=== PATIENT | female | born 1990 | race Caucasian/White ===

== ENCOUNTER 2016-07-28 15:36 | Emergency (ER) | payer BC ==
[2016-07-28] MEDS ORDERED: SODIUM CHLORIDE 0.9% 1,000 ML IV ONE (16:04)
[2016-07-28] MEDS ORDERED: KETOROLAC 30 MG/ML 1 ML VIAL IVP STA (16:07)
--- NOTE | 2016-07-28 16:09 | ED ---
General Adult HPI - General Chief complaint: Weakness Stated complaint: fatigue Time Seen by Provider: 07/28/16 15:54 Source: patient, RN notes reviewed, old records reviewed Mode of arrival: ambulatory Limitations: no limitations - History of Present Illness Initial comments: Is a pleasant 26-year-old female with chief complaint fatigue for the past week. Patient reports that she was diagnosed with strep on Sunday. She was placed on amoxicillin. She states that that medicine caused her to vomit that she recently was switched to Biaxin. She states that she also felt lightheaded and very fatigued. She reports that she reports that if local physician's office and they prescribed her Antivert. She reports that despite her extremely tired. She denies any dizziness at this time she denies any lightheadedness. She reports that she's had a mild cough. Denies any recent fever. She states she's up-to-date on vaccinations and did have the influenza vaccine. Patient denies any abdominal pain, nausea or vomiting. Denies any dysuria hematuria or changes in bowel movement. She did have an appetite today. She reports that over the past 2 days she hasn't. Patient per she does has diffuse body aches. She states that she is in relatively good health. No chronic medical conditions. - Related Data Home Medications Medication Instructions Recorded Confirmed Cholecalciferol [Vitamin D3] 400 unit PO DAILY 07/28/16 07/28/16 Citalopram Hydrobromide [CeleXA] 10 mg PO DAILY 07/28/16 07/28/16 Clarithromycin [Biaxin] 500 mg PO Q12HR 07/28/16 07/28/16 Loratadine [Claritin] 10 mg PO DAILY 07/28/16 07/28/16 Meclizine [Antivert] 25 mg PO DAILY PRN 07/28/16 07/28/16 Multivitamins, Thera [Multivitamin 1 tab PO DAILY 07/28/16 07/28/16 (formulary)] Norethindrone-E.estradiol-Iron 1 tab PO DAILY 07/28/16 07/28/16 [ 24 Tablet] Allergies Allergy/AdvReac Type Severity Reaction Status Date / Time Sulfa (Sulfonamide Allergy Unknown Verified 07/28/16 16:29 Antibiotics) amoxicillin AdvReac Nausea & Verified 05/05/17 16:29 Vomiting Review of Systems ROS Statement: Those systems with pertinent positive or pertinent negative responses have been documented in the HPI. ROS Other: All systems not noted in ROS Statement are negative. Past Medical History Past Medical History: Asthma Additional Past Medical History / Comment(s): mono epstien bar virus seasonal allergies History of Any Multi-Drug Resistant Organisms: None Reported Additional Past Surgical History / Comment(s): ovarian cyst surg Past Psychological History: Anxiety Smoking Status: Never smoker Past Alcohol Use History: None Reported Past Drug Use History: None Reported General Exam - General Exam Comments Initial Comments: His is a pleasant 26-year-old female. No acute distress. Limitations: no limitations General appearance: alert, in no apparent distress Head exam: Present: atraumatic, normocephalic, normal inspection Eye exam: Present: normal appearance, PERRL, EOMI. Absent: scleral icterus, conjunctival injection, periorbital swelling ENT exam: Present: normal exam, mucous membranes moist, other (Enlarged bilateral tonsils. No evidence of exudates.) Neck exam: Present: normal inspection, lymphadenopathy (Tender anterior cervical right-sided lymphadenopathy.). Absent: tenderness, meningismus Respiratory exam: Present: normal lung sounds bilaterally. Absent: respiratory distress, wheezes, rales, rhonchi, stridor Cardiovascular Exam: Present: regular rate, normal rhythm, normal heart sounds. Absent: systolic murmur, diastolic murmur, rubs, gallop, clicks GI/Abdominal exam: Present: soft, normal bowel sounds. Absent: distended, tenderness, guarding, rebound, rigid Extremities exam: Present: normal inspection, full ROM, normal capillary refill. Absent: tenderness, pedal edema, joint swelling, calf tenderness Back exam: Present: normal inspection Neurological exam: Present: alert, oriented X3, CN II-XII intact Psychiatric exam: Present: normal affect, normal mood Skin exam: Present: warm, dry, intact, normal color. Absent: rash Course Vital Signs 07/28/16 15:44 Temperature 98.4 F Pulse Rate 85 Respiratory 18 Rate Blood Pressure 150/90 O2 Sat by Pulse 99 Oximetry Medical Decision Making - Medical Decision Making This is a 26-year-old female chief complaint of fatigue, sore throat and upper respiratory symptoms for the past week. Patient reports that she has been started on Biaxin for strep throat. She states she's been taking this. She does feel little bit better. She states she just feels extremely tired. She has had a history of mono in the past. All labs are reviewed and are negative. Negative heterophile. Patient was given a liter IV fluids. Discussed with her the importance of rest. Discussed return parameters. Chest x-rays venous also negative for any acute process. Patient agrees to treatment plan will comply. She'll be continuing on her outpatient antibiotic. - Lab Data Result diagrams: 07/28/16 16:20 07/28/16 16:20 Lab Results 07/28/16 07/28/16 07/28/16 Range/Units 16:20 16:20 16:20 WBC 3.9 (3.8-10.6) k/uL RBC 4.64 (3.80-5.40) m/uL Hgb 13.9 (11.4-16.0) gm/dL Hct 40.6 (34.0-46.0) % MCV 87.6 (80.0-100.0) fL MCH 30.0 (25.0-35.0) pg MCHC 34.2 (31.0-37.0) g/dL RDW 12.3 (11.5-15.5) % Plt Count 222 (150-450) k/uL Neutrophils % 48 % Lymphocytes % 39 % Monocytes % 8 % Eosinophils % 2 % Basophils % 1 % Neutrophils # 1.9 (1.3-7.7) k/uL Lymphocytes # 1.5 (1.0-4.8) k/uL Monocytes # 0.3 (0-1.0) k/uL Eosinophils # 0.1 (0-0.7) k/uL Basophils # 0.0 (0-0.2) k/uL Sodium 140 (137-145) mmol/L Potassium 4.3 (3.5-5.1) mmol/L Chloride 105 (98-107) mmol/L Carbon Dioxide 26 (22-30) mmol/L Anion Gap 9 mmol/L BUN 12 (7-17) mg/dL Creatinine 0.67 (0.52-1.04) mg/dL Est GFR (MDRD) Af Amer >60 (>60 ml/min/1.73 sqM) Est GFR (MDRD) Non-Af >60 (>60 ml/min/1.73 sqM) Glucose 97 (74-99) mg/dL Calcium 9.2 (8.4-10.2) mg/dL Total Bilirubin 0.4 (0.2-1.3) mg/dL AST 21 (14-36) U/L ALT 20 (9-52) U/L Alkaline Phosphatase 94 (38-126) U/L Total Protein 8.0 (6.3-8.2) g/dL Albumin 4.4 (3.5-5.0) g/dL Urine Color Urine Appearance (Clear) Urine pH (5.0-8.0) Ur Specific Rye (1.001-1.035) Urine Protein (Negative) Urine Glucose (UA) (Negative) Urine Ketones (Negative) Urine Blood (Negative) Urine Nitrite (Negative) Urine Bilirubin (Negative) Urine Urobilinogen (<2.0) mg/dL Ur Leukocyte Esterase (Negative) Heterophile Antibody (Negative) Influenza Type A RNA Not Detected (Not Detectd) Influenza Type B (PCR) Not Detected (Not Detectd) 07/28/16 07/28/16 Range/Units 16:20 16:20 WBC (3.8-10.6) k/uL RBC (3.80-5.40) m/uL Hgb (11.4-16.0) gm/dL Hct (34.0-46.0) % MCV (80.0-100.0) fL MCH (25.0-35.0) pg MCHC (31.0-37.0) g/dL RDW (11.5-15.5) % Plt Count (150-450) k/uL Neutrophils % % Lymphocytes % % Monocytes % % Eosinophils % % Basophils % % Neutrophils # (1.3-7.7) k/uL Lymphocytes # (1.0-4.8) k/uL Monocytes # (0-1.0) k/uL Eosinophils # (0-0.7) k/uL Basophils # (0-0.2) k/uL Sodium (137-145) mmol/L Potassium (3.5-5.1) mmol/L Chloride (98-107) mmol/L Carbon Dioxide (22-30) mmol/L Anion Gap mmol/L BUN (7-17) mg/dL Creatinine (0.52-1.04) mg/dL Est GFR (MDRD) Af Amer (>60 ml/min/1.73 sqM) Est GFR (MDRD) Non-Af (>60 ml/min/1.73 sqM) Glucose (74-99) mg/dL Calcium (8.4-10.2) mg/dL Total Bilirubin (0.2-1.3) mg/dL AST (14-36) U/L ALT (9-52) U/L Alkaline Phosphatase (38-126) U/L Total Protein (6.3-8.2) g/dL Albumin (3.5-5.0) g/dL Urine Color Colorless Urine Appearance Clear (Clear) Urine pH 6.5 (5.0-8.0) Ur Specific Rye 1.002 (1.001-1.035) Urine Protein Negative (Negative) Urine Glucose (UA) Negative (Negative) Urine Ketones Negative (Negative) Urine Blood Negative (Negative) Urine Nitrite Negative (Negative) Urine Bilirubin Negative (Negative) Urine Urobilinogen <2.0 (<2.0) mg/dL Ur Leukocyte Esterase Negative (Negative) Heterophile Antibody Negative (Negative) Influenza Type A RNA (Not Detectd) Influenza Type B (PCR) (Not Detectd) - Radiology Data Radiology results: report reviewed Chest x-ray was again is no evidence of any acute cardiopulmonary process. This is read by Dr. Marifer Garcia. Disposition Clinical Impression: Upper respiratory infection, Fatigue Disposition: HOME SELF-CARE Condition: Good Instructions: Upper Respiratory Infection (ED) Additional Instructions: Patient advised to follow up with primary care provider if symptoms continue to persist on Sunday. Patient is to rest and remain hydrated. Return to the emergency department if any alarming signs or symptoms occur. Referrals: Chaim Silva MD [Primary Care Provider] - 1-2 days Time of Disposition: 17:17
[2016-07-28] MEDS ORDERED: SODIUM CHLORIDE 0.9% 1,000 ML IV SCH (16:15)
[2016-07-28 16:33] LABS: Appearance,Urine Clear (Clear); Bilirubin,Urine Negative (Negative); Glucose,Urine (UA) Negative (Negative); Ketones,Urine Negative (Negative); Leukocyte Esterase,Urine Negative (Negative); Nitrite,Urine Negative (Negative); PH, Urine 6.5 (5.0-8.0); Protein,Urine Negative (Negative); Specific Gravity,Urine 1.002 (1.001-1.035); UA Billing (MACRO vs. MICRO) CHEM; Urobilinogen,Urine <2.0 mg/dL (<2.0)
[2016-07-28 16:35] LABS: Basophils % (A) 1 %; CH 30.2; CHCM 34.6; Eosinophils # (A) 0.1 k/uL (0-0.7); Eosinophils % (A) 2 %; HCT 40.6 % (34.0-46.0); HDW 2.63; HGB 13.9 gm/dL (11.4-16.0); Luc # (Auto) 0.12; Luc % (Auto) 3; Lymphocytes # (A) 1.5 k/uL (1.0-4.8); Lymphocytes % (A) 39 %; MCHC 34.2 g/dL (31.0-37.0); MCV 87.6 fL (80.0-100.0); Mean Platelet Volume 6.7; Monocytes # (A) 0.3 k/uL (0-1.0); Monocytes % (A) 8 %; Neutrophils # (A) 1.9 k/uL (1.3-7.7); Neutrophils % (A) 48 %; RBC 4.64 m/uL (3.80-5.40); RDW 12.3 % (11.5-15.5); WBC 3.9 k/uL (3.8-10.6); WBC (Perox) 3.67
[2016-07-28 16:43] LABS: ALT 20 U/L (9-52); AST 21 U/L (14-36); Alkaline Phosphatase 94 U/L (38-126); Anion Gap 9 mmol/L; Blood Urea Nitrogen 12 mg/dL (7-17); Calcium 9.2 mg/dL (8.4-10.2); Carbon Dioxide 26 mmol/L (22-30); Chloride 105 mmol/L (98-107); Glucose 97 mg/dL (74-99); Non-African American GFR(MDRD) >60 (>60 ml/min/1.73 sqM); Potassium 4.3 mmol/L (3.5-5.1); Sodium 140 mmol/L (137-145); Total Bilirubin 0.4 mg/dL (0.2-1.3)
--- NOTE | 2016-07-28 16:48 | XR ---
EXAMINATION TYPE: XR chest 2V DATE OF EXAM: 07/28/2016 4:37 PM COMPARISON: NONE HISTORY: Fatigue TECHNIQUE: Frontal and lateral views of the chest are obtained. FINDINGS: There is no focal air space opacity, pleural effusion, or pneumothorax seen. The cardiac silhouette size is within normal limits. The osseous structures are intact. IMPRESSION: No acute cardiopulmonary process.
[2016-07-28 17:47] VITALS: BP 127/84; PULSE 64; RESP 20; TEMP 99
== END 2016-07-28 17:48 | disposition home or self-care (01) ==
LOC: EC 15:36
DX: J06.9 Acute upper respiratory infection, unspecified (principal); R53.83 Other fatigue; R42 Dizziness and giddiness; Z88.0 Allergy status to penicillin; Z88.2 Allergy status to sulfonamides; Z79.899 Other long term (current) drug therapy
CPT/HCPCS: 99285; 96374; 96361; 36415; 80053; 85025; 86308; 81003; 87502; 71020; J1885

== ENCOUNTER → 2016-12-19 | Outpatient (CLI) | payer BC ==
--- NOTE | 2016-12-19 17:50 | US ---
EXAMINATION TYPE: US transvaginal DATE OF EXAM: 12/19/2016 COMPARISON: 04/03/2014 CLINICAL HISTORY: R10.2 Pelvic pain. TECHNIQUE: Transvaginal (TV) only per ordering physician Date of LMP: 12/09/2016 EXAM MEASUREMENTS: Uterus: 6.8 x 2.6 x 3.9 cm Endometrial Stripe: 0.4 cm Right Ovary: 3.2 x 1.7 x 2.0 cm Left Ovary: 2.7 x 1.7 x 2.4 cm 1. Uterus: anteverted 2. Endometrium: wnl 3. Right Ovary: wnl 4. Left Ovary: wnl 5. Bilateral Adnexa: wnl 6. Posterior cul-de-sac: wnl IMPRESSION: Normal transvaginal pelvic sonogram.
== END | disposition home or self-care (01) ==
LOC: RADUSWWP 16:36
PROVIDERS: ATTEND Obstetrics & Gynecology
DX: R10.2 Pelvic and perineal pain (principal)
CPT/HCPCS: 76830

== ENCOUNTER 2017-06-03 19:53 | Outpatient (CLI) | payer BC ==
[2017-06-03 20:43] LABS: Basophils % (A) 0 %; Eosinophils # (A) 0.2 k/uL (0-0.7); Eosinophils % (A) 3 %; HGB 10.8 gm/dL (11.4-16.0); Lymphocytes # (A) 1.7 k/uL (1.0-4.8); Lymphocytes % (A) 18 %; MCH 29.4 pg (25.0-35.0); MCHC 34.7 g/dL (31.0-37.0); MCV 84.6 fL (80.0-100.0); Mean Platelet Volume 7.8; Monocytes # (A) 0.5 k/uL (0-1.0); Monocytes % (A) 5 %; Neutrophils # (A) 6.8 k/uL (1.3-7.7); Neutrophils % (A) 72 %; Platelet Count 244 k/uL (150-450); RBC 3.66 m/uL (3.80-5.40); RDW 13.2 % (11.5-15.5); WBC 9.4 k/uL (3.8-10.6)
[2017-06-03 20:46] LABS: Amorphous Sediment,Urine Rare /hpf; Appearance,Urine Cloudy (Clear); Bacteria,Urine Rare /hpf; Bilirubin,Urine Negative (Negative); Blood,Urine Negative (Negative); Color,Urine Yellow; Glucose,Urine (UA) 3+ (Negative); Ketones,Urine Trace (Negative); Leukocyte Esterase,Urine Negative (Negative); Mucus,Urine Occasional /hpf; Nitrite,Urine Negative (Negative); Protein,Urine Negative (Negative); Specific Gravity,Urine 1.018 (1.001-1.035); Squamous Epithelial Cell,Urine 3 /hpf (0-4); Urobilinogen,Urine <2.0 mg/dL (<2.0); WBC,Urine 1 /hpf (0-5)
[2017-06-03 21:04] LABS: Uric Acid 3.9 mg/dL (3.7-7.4)
[2017-06-03 21:05] VITALS: BP 169/106; PULSE 118; RESP 16; TEMP 97.4
--- NOTE | 2017-08-08 09:11 | P.MSEPDOC ---
Presenting Problems - Arrival Data Date of Arrival on Unit: 06/03/17 Time of Arrival on Unit: 19:53 Mode of Transport: Wheelchair Medical History - Information : 1 Para: 0 Term: 0 : 0 Abortions: Spontaneous or Elective: 0 Number of Living Children: 0 - Gestational Age Gestational Age by JACQUES (wks/days): 25 Weeks and 1 Days Vital Signs - Temperature Temperature: 97.4 F Temperature Source: Temporal Artery Scan - Pulse Right Brachial Pulse Rate: 118 Pulse Assessment Method: Automatic Cuff - Respirations Respiratory Rate: 16 Oxygen Delivery Method: Room Air O2 Sat by Pulse Oximetry: 97 - Blood Pressure Right Arm Blood Pressure: 169/106 Blood Pressure Mean: 127 Blood Pressure Source: Automatic Cuff Medical Screen Scoring (Post) - Cervical Exam Dilation: Exam Deferred Effacement: Exam Deferred - Uterine Contractions Frequency: N/A Duration: N/A Intensity: N/A - Maternal Vital Signs Maternal Temperature: N/A Maternal Blood Pressure: Systolic >139 = 2 Signs of Preeclampsia: N/A Maternal Respirations: N/A - Pain Assessment Pain Scale Used: Numeric (1 - 10) Pain Intensity: 0 - Maternal Trauma Maternal Trauma: N/A - Assessment Heart Rate - NICHD Category: Category I (Normal) = 0 - Total Score Total Score (Post): 2 - Post Treatment Level of Risk Post Treatment Level of Risk: Low (0-5) Physician Notification (Post) - Physician Notified Physician Notified Date: 06/03/17 Physician Notified Time: 21:17 Spoke With: siva Lagunas Order Received: Yes - Notification Comment Comment: d/c pt home after pih labs, ua. Follow up with Desiree 06/05 Disposition - Disposition OB Disposition: Discharge to home, Written follow up instructions reviewed Discharge Date: 06/03/17 Discharge Time: 21:25 I agree with the RN Medical Screening Exam: Yes Physician's MSE Comment: Labs were wnl, blood pressure came down to normal. pt had no s/s of pre- eclampsia. she is to follow up with her ob in 2 days. Risk & Benefit of care provided described in d/c instruction: Yes Diagnosis: GESTATNL HTN W/O SIGNIFICANT PROTEINURIA, SECOND TRIMESTER
== END 2017-06-03 21:25 | disposition home or self-care (01) ==
LOC: FBPOP 19:53
PROVIDERS: ATTEND Obstetrics & Gynecology
DX: O13.2 Gestational [pregnancy-induced] hypertension without significant proteinuria, second trimester (principal); Z3A.25 25 weeks gestation of pregnancy
CPT/HCPCS: 81001; 82570; 83615; 84156; 84450; 84460; 84550; 85025; 99215

== ENCOUNTER 2017-09-10 12:28 | Inpatient (IN) | payer BC ==
[2017-09-10] MEDS ORDERED: DINOPROSTONE 10 MG INSERT.ER VAGINAL ONE (12:44)
[2017-09-10 13:48] LABS: Basophils % (A) 0 %; Eosinophils # (A) 0.1 k/uL (0-0.7); Eosinophils % (A) 1 %; HCT 31.4 % (34.0-46.0); HGB 10.4 gm/dL (11.4-16.0); Lymphocytes % (A) 19 %; MCH 26.8 pg (25.0-35.0); MCHC 33.1 g/dL (31.0-37.0); MCV 80.9 fL (80.0-100.0); Mean Platelet Volume 7.2; Monocytes # (A) 0.4 k/uL (0-1.0); Monocytes % (A) 4 %; Neutrophils # (A) 7.6 k/uL (1.3-7.7); Neutrophils % (A) 73 %; Platelet Count 257 k/uL (150-450); RBC 3.88 m/uL (3.80-5.40); RDW 14.7 % (11.5-15.5); WBC 10.5 k/uL (3.8-10.6)
[2017-09-10 14:06] VITALS: BMI 38.4
[2017-09-10 14:10] LABS: Uric Acid 4.7 mg/dL (3.7-7.4)
[2017-09-10 14:30] LABS: INR 0.9 (<1.2); Prothrombin Time 9.3 sec (9.0-12.0)
[2017-09-10 14:33] LABS: Partial Thromboplastin Time 20.3 sec (22.0-30.0)
--- NOTE | 2017-09-10 18:34 | P.HPOB ---
History of Present Illness H&P Date: 09/10/17 Chief Complaint: Gestational hypertension. This patient is a pleasant 27-year-old 1 para 0 female estimated date of confinement 09/15/2017 estimated gestational age 39-2/7 weeks to labor and delivery from my office for evaluation of hypertension. Patient's blood pressures throughout the been fine however today in the office she was 140-152/94-98. Repeat blood pressures here in labor and delivery are similar. Preeclampsia evaluation was negative. Patient does report a mild headache over the weekend but did not take anything for it. Patient also failed a 3 hour gtt. and has been managed by endocrinology for gestational diabetes with good control. Review of Systems Genitourinary: Reports Menstruation: Reports amenorrhea Past Medical History Past Medical History: Asthma Additional Past Medical History / Comment(s): mono epstien bar virus seasonal allergies, gestational hypertension. History of Any Multi-Drug Resistant Organisms: None Reported Additional Past Surgical History / Comment(s): Patient had a laparotomy in [address] Kulkarni her for a 11 cm right ovarian dermoid that was treated by a right ovarian cystectomy. Past Anesthesia/Blood Transfusion Reactions: No Reported Reaction Past Psychological History: Anxiety Smoking Status: Never smoker Past Alcohol Use History: None Reported Past Drug Use History: None Reported - Past Family History Father History Unknown: Yes Family Medical History: Hypertension Medications and Allergies Home Medications Medication Instructions Recorded Confirmed Type Loratadine [Claritin] 10 mg PO DAILY 07/28/16 09/10/17 History Multivitamins, Thera [Multivitamin 1 tab PO DAILY 07/28/16 09/10/17 History (formulary)] Allergies Allergy/AdvReac Type Severity Reaction Status Date / Time Sulfa (Sulfonamide Allergy Unknown Verified 09/10/17 12:40 Antibiotics) amoxicillin AdvReac Nausea & Verified 09/10/17 12:40 Vomiting Exam - Vital Signs Vital signs: Vital Signs Temp Pulse Resp BP Pulse Ox 09/10/17 12:37 99.0 F 103 H 18 160/108 97 Intake and Output 09/10/17 09/10/17 09/10/17 06:59 14:59 22:59 Other: Weight 101.605 kg - OBG Physical Exam Abdomen: bowel sounds normal, no diffuse tenderness, no bruit present, no guarding noted, no hepatomegaly, no splenomegaly, no mass Vagina: normal moisture, no discharge Cervix: no lesion (Cervix is closed and thick.), no discharge Uterus: enlarged (Fundal height is 39 cm.) Results blood work shows she is B+, rubella equivocal, RPR is nonreactive, hepatitis B was negative, group B strep was negative, most recent ultrasound showed normal growth. Estimated weight is 7 pounds 3/4-8 pounds. Result Diagrams: 09/10/17 13:15 09/10/17 13:15 Abnormal Lab Results - Last 24 Hours (Table) 09/10/17 09/10/17 Range/Units 13:15 13:15 Hgb 10.4 L (11.4-16.0) gm/dL Hct 31.4 L (34.0-46.0) % APTT 20.3 L (22.0-30.0) sec Fibrinogen 592 H (200-500) mg/dL Assessment and Plan Assessment: This is a pleasant 27-year-old 1 para 0 female estimated gestational age 39-2/7 weeks gestation with gestational hypertension. She also has gestational diabetes with good control. Patient's preeclampsia labs are normal at this time. This point her blood pressures are elevated but not at a level that indicate treatment. Recommended proceed with two-stage induction of labor. Patient I discussed her diagnoses and the induction process. (1) Gestational diabetes Current Visit: Yes Status: Acute Code(s): O24.419 - GESTATIONAL DIABETES MELLITUS IN , UNSP CONTROL SNOMED Code(s): 02994308 (2) Gestational hypertension Current Visit: Yes Status: Acute Code(s): O13.9 - GESTATIONAL HTN W/O SIGNIFICANT PROTEINURIA, UNSP TRIMESTER SNOMED Code(s): 30203087
[2017-09-10 20:05] LABS: Glucose,Whole Blood 127 mg/dL (75-99)
[2017-09-11] MEDS ORDERED: METHYLERGONOVINE 0.2 MG/ML 1 ML AMP IM PRN (01:49)
[2017-09-11] MEDS ORDERED: LIDOCAINE 1% (PF) 10 MG/ML (30 ML SDV) SQ PRN (01:49)
[2017-09-11] MEDS ORDERED: OXYTOCIN 10 UNIT/ML 1 ML VIAL IM PRN (01:49)
[2017-09-11] MEDS ORDERED: CARBOPROST TROMETHAMINE 250 MCG/ML 1 ML AMP IM PRN (01:49)
[2017-09-11] MEDS ORDERED: TERBUTALINE 1 MG/ML VIAL SQ PRN (01:49)
[2017-09-11] MEDS ORDERED: LACTATED RINGERS 1,000 ML IV SCH (02:00)
[2017-09-11] MEDS ORDERED: OXYTOCIN 20 UNITS/1000 ML NS 1,000 ML IV SCH ×2 (02:00→08:42)
[2017-09-11] MEDS: BUTORPHANOL 1 MG/ML 1 ML VIAL IV PRN ×2 (02:19→04:38)
[2017-09-11] MEDS ORDERED: CITRIC ACID-SODIUM CITRATE 15 ML CUP PO ONE (06:08)
[2017-09-11] MEDS ORDERED: LACTATED RINGERS 1,000 ML IV ONE (06:08)
--- NOTE | 2017-09-11 06:13 | P.PN ---
Progress Note - Text Progress Note Date: 09/11/17 Patient dilated to 2 cm with Cervidil and thick. Artificial rupture membranes was done for clear fluid however patient has had no progress since approximately 1 this morning. Blood pressures are stable but occasionally elevated 160/90. I discussed continuing labor with this patient versus delivery by section this time she is requested to proceed with C- section at this time I feel is appropriate. We discussed the surgery and risks and benefits.
[2017-09-11] MEDS: ceFAZolin IN SWFI 2 GM/20 ML SYRINGE IVP ONE (07:14)
[2017-09-11] MEDS ORDERED: MORPHINE SULFATE (PF) 0.3 MG/0.3 ML SYR ONE (07:51)
[2017-09-11] MEDS ORDERED: NALBUPHINE 10 MG/ML VIAL (10ML MDV) ONE (07:51)
[2017-09-11] MEDS ORDERED: ePHEDrine SULFATE/0.9% NACL/PF 50 MG/5 ML SYRINGE IV ONE (07:51)
[2017-09-11] MEDS ORDERED: LACTATED RINGERS 1,000 ML BAG IV ONE (07:51)
[2017-09-11] MEDS ORDERED: KETOROLAC 30 MG/ML 1 ML VIAL ONE (07:51)
[2017-09-11] MEDS ORDERED: ONDANSETRON 4 MG/2 ML VIAL ONE (07:51)
[2017-09-11] MEDS ORDERED: OXYTOCIN 10 UNIT/ML 1 ML VIAL ONE (07:51)
[2017-09-11] MEDS ORDERED: CELLULOSE,OXIDIZED 1 EACH EACH MISCELLANE ONE (08:20)
[2017-09-11] MEDS ORDERED: diphenhydrAMINE 50 MG/ML 1 ML VIAL IVP PRN ×2 (08:41→08:42)
[2017-09-11] MEDS ORDERED: NALOXONE 0.4 MG/ML 1 ML VIAL IV PRN ×2 (08:41→08:42)
[2017-09-11] MEDS ORDERED: NALBUPHINE 10 MG/ML VIAL (10ML MDV) IV PRN (08:41)
[2017-09-11] MEDS ORDERED: MEASLES-MUMPS-RUBELLA VACC/PF 12,500 UNIT/0.5 ML VIAL SQ ONE (08:42)
[2017-09-11] MEDS ORDERED: ZOLPIDEM 5 MG TAB PO PRN (08:42)
[2017-09-11] MEDS ORDERED: diphenhydrAMINE 25 MG CAP PO PRN (08:42)
[2017-09-11] MEDS ORDERED: ONDANSETRON 4 MG/2 ML VIAL IVP PRN (08:42)
[2017-09-11] MEDS ORDERED: METOCLOPRAMIDE 5 MG/ML 2 ML VIAL IVP PRN (08:42)
[2017-09-11] MEDS ORDERED: SIMETHICONE 80 MG CHEWABLE PO PRN (08:42)
[2017-09-11] MEDS ORDERED: LABETALOL 100 MG TAB PO PRN (08:42)
--- NOTE | 2017-09-11 08:46 | P.OP ---
Date of Procedure: 09/11/17 Preoperative Diagnosis: #1: 39-2/7 week intrauterine . #2: Gestational hypertension. #3: Gestational diabetes. #4: Failed induction of labor. Postoperative Diagnosis: Same, omental adhesions Procedure(s) Performed: Primary low transverse section Anesthesia: spinal Surgeon: Garrick Ramírez Head Refrigerating Engineer #1: Alexis Moreno Estimated Blood Loss (ml): 800 Pathology: other (Placenta) Condition: stable Disposition: floor Indications for Procedure: Please see dictated H&P for intimate details of this patient's admission. Brief summary this pleasant 27-year-old 1 para 0 female 39-2/7 weeks gestation is admitted to labor and delivery for induction of labor secondary to gestational hypertension yesterday afternoon. Patient has Cervidil placed and then had artificial rupture membranes about 1:00 this morning and Pitocin augmentation of labor. Patient progressed only to 2 cm dilated and at that time we discussed options for delivery and plan was to proceed with section. Patient does understand the surgery and risks including risks of infection, bleeding, possible injury bowel, bladder, vessels, and/or other organs. She also understands risk of DVT and pulmonary embolism. All the patient's questions are answered and a written consent is obtained. Operative Findings: Viable female infant Apgars 9 and 9 at 0809 hrs. weight was 8 lbs. 3 oz. There were dense omental adhesions to the anterior abdominal wall from her previous laparotomy Description of Procedure: This patient had a Escalera catheter placed to straight drain. She subsequently taken to the operating room where she sat up and spinal anesthetic is administered without incident. With an adequate level of anesthesia she has abdominal prep and drape. Previous Pfannenstiel incision is incised with scalpel. A second scalpel is taken down to the fascia and the fascia scored with a knife. Fascial incision extended bilaterally using the Parry scissors. Fascia is dissected off the rectus muscles. Rectus muscles are and there is already omental adhesions are noted at this area. Careful blunt and sharp dissection is done at this time to open up the perineum. Small omental adhesions are taken down. I then place a bladder flap and the lower uterine segment. Metzenbaum was then used to develop the bladder peritoneum. Scalpels then taken and a low transverse uterine incision is then made. Using a hemostat into the uterine cavity gently and there is loss of small amount of clear fluid. This incision extended bluntly. 's head is then guided through the incision with fundal pressure with delivery of the infant's head. Mouth and nares are bulb suctioned. There is no evidence of nuchal cord. Have delivery anterior posterior shoulder and rest this 's body. Is a vigorous viable female infant Apgars are 9 and 9 delivery time is 0809 hrs. After delivery of the the umbilical cords doubly clamped and cut is handed off to the nurses in attendance. Placenta is then manually extracted intact. Uterus is then externalized and uterine incision closed in 0 Vicryl running locked fashion. There are some areas there was omental adhesions as well that are taken down. I do place a piece of Interceed on the lower part of the uterus to hopefully prevent future adhesions. With this done I inspect the pelvis all appears hemostatic. Perineum was then excised best as possible reapproximated using a 0 Vicryl running. There is a few lesions that are taken down some dense omental adhesions are left because her to dense. The rectus muscles are reapproximated Vicryl interrupted fashion. Fascia is then closed using 0 PDS. Fascial incision is intact and hemostatic. Subcutaneous tissues and reapproximated using a 3-0 Vicryl. Skin is and closed using alex. All counts are correct 3. There are no complications. Infant and mother taken birthing suite in satisfactory condition.
--- NOTE | 2017-09-11 09:37 | P.PN ---
Progress Note - Text Progress Note Date: 09/11/17 27-year-old female status post section postop day #1 with Duramorph spinal. Patient doing well, VAS 2 out of 10 in severity, no compressive pruritus, patient is ambulating and tolerating diet well.
[2017-09-11] MEDS: ceFAZolin IN SWFI 2 GM/20 ML SYRINGE IVP SCH ×2 (09:57→18:05)
[2017-09-11] MEDS: SENNOSIDES-DOCUSATE SODIUM 1 EACH TAB PO SCH ×2 (10:08→23:16)
[2017-09-11] MEDS: LACTATED RINGERS 1,000 ML IV SCH ×2 (12:00→17:08)
[2017-09-11] MEDS: KETOROLAC 30 MG/ML 1 ML VIAL IVP PRN (16:17)
[2017-09-12] MEDS: KETOROLAC 30 MG/ML 1 ML VIAL IVP PRN ×2 (01:14→08:38)
[2017-09-12] MEDS: LACTATED RINGERS 1,000 ML IV SCH (03:15)
--- NOTE | 2017-09-12 05:59 | P.PNOBGPC ---
Subjective - Subjective Patient reports: Reports appetite normal, Reports voiding normally, Reports pain well controlled, Reports ambulating normally : doing well Objective - Vital Signs Latest vital signs: Vital Signs Temp Pulse Resp BP Pulse Ox 09/12/17 05:00 16 09/12/17 04:00 98.7 F 95 16 119/77 09/12/17 03:00 16 98 09/12/17 01:00 16 98 09/12/17 00:00 98.1 F 105 H 16 130/78 09/11/17 23:00 16 09/11/17 21:00 16 99 09/11/17 20:00 99.3 F 95 16 125/79 09/11/17 19:00 18 09/11/17 17:00 16 96 09/11/17 15:50 98.5 F 89 16 136/88 97 09/11/17 15:00 16 09/11/17 13:41 97 09/11/17 13:00 18 09/11/17 12:00 98.8 F 91 18 124/71 96 09/11/17 11:41 16 09/11/17 10:42 96.7 F L 91 14 130/89 09/11/17 10:12 81 16 128/87 09/11/17 09:42 98 16 122/88 09/11/17 09:41 99 09/11/17 09:27 97 14 115/52 09/11/17 09:12 98 14 113/60 09/11/17 08:53 93 14 112/64 09/11/17 08:42 97.2 F L 96 16 106/59 09/11/17 08:41 14 99 Intake and Output 09/11/17 09/11/17 09/12/17 14:59 22:59 06:59 Output Total 1000 600 Balance -1000 -600 Output: Urine 1000 600 Other: Voiding Method Indwelling Catheter # Voids 1 1 Weight 101.605 kg - Exam Lungs: bilateral: normal Chest: Normal S1, Normal S2 Extremities: Present: normal Abdomen: Present: normal appearance, soft. Absent: distention, tenderness Incision: Present: normal, dry, intact Uterus: Present: normal, firm Assessment and Plan Assessment: Post operative day #1. Patient is resting without complaints. Vital signs are stable she's afebrile. Uterus is firm nontender and she is having normal lochia. Her incision is intact and dry. CBC is pending. Plan is to continue routine postoperative care, allow the patient to shower, check a CBC, and continue regular diet. (1) Gestational diabetes Current Visit: Yes Status: Acute Code(s): O24.419 - GESTATIONAL DIABETES MELLITUS IN , UNSP CONTROL SNOMED Code(s): 17674510 (2) Gestational hypertension Current Visit: Yes Status: Acute Code(s): O13.9 - GESTATIONAL HTN W/O SIGNIFICANT PROTEINURIA, UNSP TRIMESTER SNOMED Code(s): 65163346
[2017-09-12 07:00] LABS: Basophils % (A) 0 %; Eosinophils # (A) 0.1 k/uL (0-0.7); Eosinophils % (A) 1 %; HCT 27.6 % (34.0-46.0); Hypochromasia Slight; Lymphocytes # (A) 1.4 k/uL (1.0-4.8); Lymphocytes % (A) 14 %; MCH 26.5 pg (25.0-35.0); MCHC 32.8 g/dL (31.0-37.0); MCV 80.9 fL (80.0-100.0); Mean Platelet Volume 8.5; Monocytes # (A) 0.7 k/uL (0-1.0); Monocytes % (A) 6 %; Neutrophils % (A) 78 %; Platelet Count 213 k/uL (150-450); RBC 3.41 m/uL (3.80-5.40); RDW 14.8 % (11.5-15.5); WBC 10.2 k/uL (3.8-10.6)
[2017-09-12] MEDS: SENNOSIDES-DOCUSATE SODIUM 1 EACH TAB PO SCH ×2 (08:39→20:30)
--- NOTE | 2017-09-12 10:07 | P.PN ---
Progress Note - Text Anesthesia POD 1. Patient is status post section under spinal anesthesia with intra-thecal preservative free morphine 300 g. Moderate pruritus, good post-op analgesia, and no headache or other complication.
[2017-09-12] MEDS: ACETAMINOPHEN TAB 325 MG TAB PO PRN (12:03)
[2017-09-12] MEDS: IBUPROFEN 600 MG TAB PO PRN (18:16)
[2017-09-13] MEDS: ACETAMINOPHEN TAB 325 MG TAB PO PRN (00:03)
[2017-09-13] MEDS: IBUPROFEN 600 MG TAB PO PRN (06:28)
--- NOTE | 2017-09-13 06:37 | P.PNOBGPC ---
Subjective - Subjective Patient reports: Reports appetite normal, Reports voiding normally, Reports pain well controlled, Reports ambulating normally : doing well Objective - Vital Signs Latest vital signs: Vital Signs Temp Pulse Resp BP Pulse Ox 09/13/17 00:00 98.4 F 108 H 16 128/81 09/12/17 16:00 98.4 F 104 H 18 140/88 97 09/12/17 08:40 99.3 F 105 H 16 142/87 98 Intake and Output 09/12/17 09/12/17 09/13/17 14:59 22:59 06:59 Output Total 1 Balance -1 Output: Urine 1 Other: # Voids 1 2 - Exam Lungs: bilateral: normal Chest: Normal S1, Normal S2 Extremities: Present: normal Abdomen: Present: normal appearance, soft. Absent: distention, tenderness Incision: Present: normal, dry, intact Uterus: Present: normal, firm - Labs Labs: Abnormal Lab Results - Last 24 Hours (Table) 09/12/17 Range/Units 06:32 RBC 3.41 L (3.80-5.40) m/uL Hgb 9.0 L (11.4-16.0) gm/dL Hct 27.6 L (34.0-46.0) % Neutrophils # 8.0 H (1.3-7.7) k/uL Assessment and Plan Assessment: Post operative day #2. Patient is resting without complaints wishes to go home. Vital signs are stable she is afebrile. Blood pressures look good. Uterus is firm nontender and her incision is intact and dry. Patient is tolerating regular diet, urinating, ambulating without difficulty. My impression this is a normal post operative course. Plan is to continue routine postoperative care and discharge home later today. Patient will see me in 1 week for an incision and blood pressure check. (1) Gestational diabetes Current Visit: Yes Status: Acute Code(s): O24.419 - GESTATIONAL DIABETES MELLITUS IN , UNSP CONTROL SNOMED Code(s): 00629405 (2) Gestational hypertension Current Visit: Yes Status: Acute Code(s): O13.9 - GESTATIONAL HTN W/O SIGNIFICANT PROTEINURIA, UNSP TRIMESTER SNOMED Code(s): 46634025
--- NOTE | 2017-09-13 06:43 | P.DS ---
Providers Date of admission: 09/10/17 12:28 Expected date of discharge: 09/13/17 Attending physician: Garrick Ramírez Primary care physician: Ricardo Rucker - Discharge Diagnosis(es) (1) Gestational diabetes Current Visit: Yes Status: Acute (2) Gestational hypertension Current Visit: Yes Status: Acute Hospital Course: Please see dictated H&P for intimate details of this patient's admission. Brief summary this is a pleasant 27-year-old 1 para 0 female 39-2/7 weeks gestation admitted for my office with hypertension. Patient had a failed induction of labor and subsequent on to have a primary low transverse section for viable female infant. Please see dictated operative note. Postoperative patient very well and on postoperative 2 was felt be stable for discharge home follow up with me in 1 week. Patient did not require any blood pressure medications however repeat blood pressure check in 1 week. Procedures: Induction of labor and primary low transverse section. Patient Condition at Discharge: Good Plan - Discharge Summary New Discharge Prescriptions: No Action Multivitamins, Thera [Multivitamin (formulary)] 1 tab PO DAILY Loratadine [Claritin] 10 mg PO DAILY Discharge Medication List Loratadine [Claritin] 10 mg PO DAILY 07/28/16 [History] Multivitamins, Thera [Multivitamin (formulary)] 1 tab PO DAILY 07/28/16 [History ] Follow up Appointment(s)/Referral(s): Garrick Ramírez MD [STAFF PHYSICIAN] - 09/21/17 1:30 pm (Patient also has a check on October 23 at 10:30 AM.) Patient Instructions/Handouts: (DC) Activity/Diet/Wound Care/Special Instructions: No heavy lifting or strenuous activity for 6 weeks. No intercourse or anything per vagina for 6 weeks. Please call if any fever, chills, excessive vaginal bleeding, and/or abdominal pain. Discharge Disposition: HOME SELF-CARE
[2017-09-13] MEDS: SENNOSIDES-DOCUSATE SODIUM 1 EACH TAB PO SCH (07:33)
[2017-09-13 08:04] VITALS: BP 140/90; PULSE 110; RESP 17; TEMP 98.5
== END 2017-09-13 08:30 | disposition home or self-care (01) | DRG 766 ==
LOC: 4FBP 12:28
PROVIDERS: ADMIT Obstetrics & Gynecology; ATTEND Obstetrics & Gynecology
PROC: 3E0P7VZ Introduction of Hormone into Female Reproductive, Via Natural or Artificial Opening (ICD-10-PCS; 2017-09-11)
PROC: 10907ZC Drainage of Amniotic Fluid, Therapeutic from Products of Conception, Via Natural or Artificial Opening (ICD-10-PCS; 2017-09-11)
PROC: 10D00Z1 Extraction of Products of Conception, Low, Open Approach (ICD-10-PCS; principal; 2017-09-11 08:00)
DX: O13.4 Gestational [pregnancy-induced] hypertension without significant proteinuria, complicating childbirth (principal); O24.429 Gestational diabetes mellitus in childbirth, unspecified control; O61.9 Failed induction of labor, unspecified; O99.344 Other mental disorders complicating childbirth; F41.9 Anxiety disorder, unspecified; O99.52 Diseases of the respiratory system complicating childbirth; L29.9 Pruritus, unspecified; J45.909 Unspecified asthma, uncomplicated; O99.72 Diseases of the skin and subcutaneous tissue complicating childbirth; Z37.0 Single live birth; Z3A.39 39 weeks gestation of pregnancy; Z88.0 Allergy status to penicillin; Z88.2 Allergy status to sulfonamides; Z82.49 Family history of ischemic heart disease and other diseases of the circulatory system
CPT/HCPCS: 83615; 84450; 84460; 84520; 84550; 85025; 85384; 85610; 85730; 88307; 90707

== ENCOUNTER 2018-10-23 | Emergency (ER) | payer BC ==
--- NOTE | 2018-10-23 08:46 | ED ---
General Adult HPI - General Chief complaint: Allergic Reaction Stated complaint: allergic reaction Time Seen by Provider: 10/23/18 08:33 Source: patient, RN notes reviewed Mode of arrival: ambulatory Limitations: no limitations - History of Present Illness Initial comments: Patient is a pleasant 28-year-old female presenting to the emergency Department with complaints of scalp irritation. Patient states 2 days ago she did dye her hair. Patient is having itchy scalp. Patient has noticed some weeping and did have some yellow crusting this morning. Patient did recently wash her hair. Patient states there is mild irritation associated with this. No history of similar symptoms previously. Patient states there may be some swelling of the face near the scalp as well. No lip, tongue, or throat swelling. No dyspnea. - Related Data Home Medications Medication Instructions Recorded Confirmed Loratadine [Claritin] 10 mg PO DAILY 07/28/16 09/10/17 Multivitamins, Thera [Multivitamin 1 tab PO DAILY 07/28/16 09/10/17 (formulary)] Previous Rx's Medication Instructions Recorded Cephalexin [Keflex] 500 mg PO QID #28 cap 10/23/18 RX: predniSONE 2 tab PO DAILY #10 tab 10/23/18 Allergies Allergy/AdvReac Type Severity Reaction Status Date / Time Sulfa (Sulfonamide Allergy Unknown Verified 10/23/18 08:29 Antibiotics) amoxicillin AdvReac Nausea & Verified 10/23/18 08:29 Vomiting Review of Systems ROS Statement: Those systems with pertinent positive or pertinent negative responses have been documented in the HPI. ROS Other: All systems not noted in ROS Statement are negative. Constitutional: Denies: fever Eyes: Denies: eye pain ENT: Denies: ear pain Respiratory: Denies: cough Cardiovascular: Denies: chest pain Endocrine: Denies: fatigue Gastrointestinal: Denies: abdominal pain Genitourinary: Denies: dysuria Musculoskeletal: Denies: back pain Skin: Reports: as per HPI Neurological: Denies: headache Past Medical History Past Medical History: Asthma Additional Past Medical History / Comment(s): mono epstien bar virus seasonal allergies, gestational hypertension. History of Any Multi-Drug Resistant Organisms: None Reported Additional Past Surgical History / Comment(s): Patient had a laparotomy [place] [address] Shad narayan for a 11 cm right ovarian dermoid that was treated by a right ovarian cystectomy. Past Anesthesia/Blood Transfusion Reactions: No Reported Reaction Past Psychological History: Anxiety Smoking Status: Never smoker Past Alcohol Use History: None Reported Past Drug Use History: None Reported - Past Family History Father History Unknown: Yes Family Medical History: Hypertension General Exam Limitations: no limitations General appearance: alert, in no apparent distress Head exam: Present: atraumatic, normocephalic Eye exam: Present: normal appearance ENT exam: Present: normal oropharynx Neck exam: Present: normal inspection Respiratory exam: Present: normal lung sounds bilaterally Cardiovascular Exam: Present: regular rate, normal rhythm Neurological exam: Present: alert Psychiatric exam: Present: normal affect, normal mood Skin exam: Present: other (Scalp does have mild erythema more so on the superior portion. No discharge or drainage visualized.) Course Vital Signs 10/23/18 08:27 Temperature 97.5 F L Pulse Rate 107 H Respiratory 16 Rate Blood Pressure 142/99 O2 Sat by Pulse 97 Oximetry Medical Decision Making - Medical Decision Making Patient does have scalp irritation associated with hair dye use. Unclear at this point if there is a combined component of both infection and ALLERGIC reaction and therefore patient will be treated for both. Disposition Clinical Impression: Contact dermatitis Disposition: HOME SELF-CARE Condition: Stable Instructions (If sedation given, give patient instructions): Contact Dermatitis (ED) Additional Instructions: Please follow-up with primary care physician in the next couple of days for recheck. Return for fevers, increased drainage, pain, worsening symptoms or other concerns. Use [id number] Selsun Blue or similar medicated shampoo. Prescriptions have been sent to [facility]. Prescriptions: Cephalexin [Keflex] 500 mg PO QID #28 cap RX: predniSONE 2 tab PO DAILY #10 tab Is patient prescribed a controlled substance at d/c from ED?: No Referrals: Chyna Alston MD [STAFF PHYSICIAN] - 1-2 days Time of Disposition: 08:46
== END 2018-10-23 08:57 | disposition home or self-care (01) ==
CPT/HCPCS: 99283

== ENCOUNTER 2018-11-04 18:53 | Emergency (ER) | payer BC ==
[2018-11-04 19:22] VITALS: TEMP 98.3
[2018-11-04] MEDS ORDERED: methylPREDNISolone SOD SUCCI 125 MG/2 ML VIAL IM ONE (20:21)
[2018-11-04] MEDS ORDERED: diphenhydrAMINE 25 MG CAP PO STA (20:21)
--- NOTE | 2018-11-04 20:52 | ED ---
General Adult HPI - General Chief complaint: Allergic Reaction Stated complaint: rash Time Seen by Provider: 11/04/18 19:44 Source: patient, RN notes reviewed Mode of arrival: ambulatory Limitations: no limitations - History of Present Illness Initial comments: 28-year-old [id number] female presents to the emergency department for a chief of rash. Patient has a history of asthma, eczema. Patient states that she was seen here about 2 weeks ago for a reaction to hair dye. States that resolved however 3 days ago she started having a rash up on her inner arms and chest and upper back. States that her arms or itching. States she has not taken anything for this. Denies any lesions on her palms or soles. Denies any intraoral lesions. Denies any fevers or chills. Denies any constitutional symptoms.Patient has no other complaints at this time including shortness of breath, chest pain, abdominal pain, nausea or vomiting, headache, or visual changes. - Related Data Home Medications Medication Instructions Recorded Confirmed Loratadine [Claritin] 10 mg PO DAILY 07/28/16 09/10/17 Multivitamins, Thera [Multivitamin 1 tab PO DAILY 07/28/16 09/10/17 (formulary)] Previous Rx's Medication Instructions Recorded Cephalexin [Keflex] 500 mg PO QID #28 cap 10/23/18 predniSONE 2 tab PO DAILY #10 tab 10/23/18 predniSONE 50 mg PO DAILY #5 tablet 11/04/18 Allergies Allergy/AdvReac Type Severity Reaction Status Date / Time Sulfa (Sulfonamide Allergy Unknown Verified 11/04/18 19:22 Antibiotics) amoxicillin AdvReac Nausea & Verified 11/04/18 19:22 Vomiting cephalexin [From Keflex] AdvReac Nausea & Verified 11/04/18 19:22 Vomiting Review of Systems ROS Statement: Those systems with pertinent positive or pertinent negative responses have been documented in the HPI. ROS Other: All systems not noted in ROS Statement are negative. Past Medical History Past Medical History: Asthma Additional Past Medical History / Comment(s): mono epstien bar virus seasonal allergies, gestational hypertension. History of Any Multi-Drug Resistant Organisms: None Reported Additional Past Surgical History / Comment(s): Patient had a laparotomy [place] [address] Shad narayan for a 11 cm right ovarian dermoid that was treated by a right ovarian cystectomy. Past Anesthesia/Blood Transfusion Reactions: No Reported Reaction Past Psychological History: Anxiety Smoking Status: Never smoker Past Alcohol Use History: None Reported Past Drug Use History: None Reported - Past Family History Father History Unknown: Yes Family Medical History: Hypertension General Exam Limitations: no limitations General appearance: alert, in no apparent distress Head exam: Present: atraumatic, normocephalic, normal inspection Eye exam: Present: normal appearance, PERRL, EOMI. Absent: scleral icterus, conjunctival injection, periorbital swelling ENT exam: Present: normal exam, mucous membranes moist Neck exam: Present: normal inspection, full ROM. Absent: tenderness, meningismus, lymphadenopathy Respiratory exam: Present: normal lung sounds bilaterally. Absent: respiratory distress, wheezes, rales, rhonchi, stridor Cardiovascular Exam: Present: regular rate, normal rhythm, normal heart sounds. Absent: systolic murmur, diastolic murmur, rubs, gallop, clicks GI/Abdominal exam: Present: soft, normal bowel sounds. Absent: distended, tenderness, guarding, rebound, rigid Neurological exam: Present: alert Psychiatric exam: Present: normal affect, normal mood Skin exam: Present: rash (There is a slightly raised erythematous macular rash noted to the inner forearms, upper back, and chest. These are small circular lesions. Do not appear to be tracking at all. No excoriations.) Course Vital Signs 11/04/18 08 19:19 20:58 Temperature 98.3 F Pulse Rate 89 85 Respiratory 18 20 Rate Blood Pressure 157/119 149/101 O2 Sat by Pulse 97 97 Oximetry Medical Decision Making - Medical Decision Making 28-year-old female presents to the emergency department for a chief complaint of rash. Patient states this started 3 days ago. States she is ALLERGIC to many things. Denies constitutional symptoms, fevers, lesions on the palms or soles. On exam patient has a raised erythematous macular rash with small lesions noted to the inner forearms upper back and chest. There is no tracking. No excoriations. Negative Nikolsky sign. No lesions around the umbilicus. I do believe this is a type of atopic dermatitis. Patient with her surgeon Kristy. I did comment that at this time I do not believe this is scabies but asked if she had any risk factors. She states she has not and she would prefer to try steroids and Benadryl for treatment of this. She will follow up with dermatology. She will return here if she has any worsening symptoms. Patient hypertensive in the emergency department with a diastolic of 101. Recommend following up with her primary care for this. She is asymptomatic and does agree. Disposition Clinical Impression: Dermatitis Disposition: HOME SELF-CARE Condition: Good Instructions (If sedation given, give patient instructions): Acute Rash (ED) Additional Instructions: Please follow up with primary care in 1-2 days. Follow up with dermatology as soon as possible as well. Take Benadryl and steroid as directed. Return to the emergency department if you have any worsening symptoms. Prescriptions: predniSONE 50 mg PO DAILY #5 tablet Is patient prescribed a controlled substance at d/c from ED?: No Referrals: Chyna Alston MD [STAFF PHYSICIAN] - 1-2 days Honorio Martinez MD [STAFF PHYSICIAN] - 1-2 days Time of Disposition: 20:47
[2018-11-04 20:59] VITALS: BP 149/101; PULSE 85; RESP 20
== END 2018-11-04 21:03 | disposition home or self-care (01) ==
LOC: EC 18:53
DX: L20.9 Atopic dermatitis, unspecified (principal); R03.0 Elevated blood-pressure reading, without diagnosis of hypertension; Z79.899 Other long term (current) drug therapy; Z88.0 Allergy status to penicillin; Z88.1 Allergy status to other antibiotic agents; Z88.2 Allergy status to sulfonamides
CPT/HCPCS: 99282; 96372; J2930

== ENCOUNTER → 2021-05-10 | Outpatient (CLI) | payer BC ==
[2021-05-10 15:06] LABS: HGB 13.7 g/dL (12.0-15.0); MCH 29.1 pg (27.0-32.0); MCHC 32.6 g/dL (32.0-37.0); MCV 89.2 fL (80.0-97.0); Mean Platelet Volume 9.3 fL (9.5-12.2); NRBC Per 100 WBC 0 /100 WBCS (0.0-0.0); Platelet Count 277 X 10*3/uL (140-440); RBC 4.71 X 10*6/uL (4.10-5.20); RDW 11.9 % (11.5-14.5); WBC 5.81 X 10*3/uL (4.50-10.00)
[2021-05-10 15:39] LABS: African American GFR (CKD) 132.6 (60.0-200.0); Albumin 4.3 g/dL (3.8-4.9); Albumin/Globulin Ratio 1.48 (1.60-3.17); Anion Gap 13.8 mmol/L (10.00-18.00); BUN/Creat Ratio 28.16 Ratio (12.00-20.00); Blood Urea Nitrogen 19.4 mg/dL (9.0-27.0); Calcium 9.2 mg/dL (8.7-10.3); Carbon Dioxide 20.1 mmol/L (20.0-27.5); Globulin 2.9 g/dL (1.6-3.3); Non-African American GFR(CKD) 114.4 (60.0-200.0); Potassium 4.1 mmol/L (3.5-5.5); T4, Free (Free Thyroxine) 1.21 ng/dL (0.800-1.800); Total Bilirubin 0.3 mg/dL (0.30-1.20); Total Protein 7.2 g/dL (6.2-8.2)
== END | disposition home or self-care (01) ==
LOC: LABWHC1 10:15
PROVIDERS: ATTEND Internal Medicine
DX: O65.9 Obstructed labor due to maternal pelvic abnormality, unspecified (principal); R53.82 Chronic fatigue, unspecified; I10 Essential (primary) hypertension; R10.9 Unspecified abdominal pain; Z3A.00 Weeks of gestation of pregnancy not specified
CPT/HCPCS: 36415; 80053; 82306; 82607; 83516; 84439; 84443; 84481; 85027